=== PATIENT | female | born 1970 | race Caucasian/White ===

== ENCOUNTER 2018-10-18 23:56 | Emergency (ER) | payer SELFPAY ==
--- NOTE | 2018-10-19 00:01 | PDOC ---
History of Present Illness - General Stated Complaint: CHEST PAIN Time Seen by Provider: 10/18/18 23:58 - History of Present Illness Initial Comments: Hiro Sharma is a 48yo woman with no known medical problems (last saw a doctor 3yrs ago) who presents with right-sided chest, shoulder, and neck pain, sharp and non-radiating, 10/10, and constant that started yesterday. She states that she was talking with her brother when the pain suddenly started. It was initially in her shoulder and right neck, but has since progressed to include her entire right chest. She reports some limitation to taking deep breaths secondary to pain. She denies any associated left chest pain. The pain is sharp and constant; it is not associated with position, arm movement, exertion, eating, or any other activity. There are no associated symptoms including nausea, vomiting, dyspnea, or sweating. She has not traveled recently, has no history of thrombus, has not been immoblized, has not had surgery. She is not on OCPs and states she is post-menopausal. Ms Sharma has not tried taking any pain medications at home. She presented today because the pain was still 10/10 after more than a full day. Past History - Past Medical History Allergies/Adverse Reactions: Allergies Allergy/AdvReac Type Severity Reaction Status Date / Time No Known Allergies Allergy Verified 10/19/18 00:21 Home Medications: Ambulatory Orders NK [No Known Home Medication] 10/19/18 Review of Systems - Review of Systems Comments:: General: No fevers, no chills, no weight or appetite change, no malaise HEENT: No changes in vision, no changes in hearing, no congestion, no sore throat CV: See HPI. No palpitations, no LE edema Pulm: No SOB, no cough, no wheezing GI: No nausea or vomiting, no change in bowel habits, no melena : No frequency, no urgency, no dysuria Musc: No back pain, no joint swelling, no recent injury Skin: No rash, no lesions, no erythema Endo: No excessive thirst, no heat/cold intolerance Heme: No unusual bruising or bleeding, no swollen glands Neuro: No syncope, no numbness/tingling, no focal weakness Vasc: No claudication Psych: No recent change in mood, no SI or HI *Physical Exam - Physical Exam Comments: General: Comfortable, no acute distress HEENT: PERRL, EOMI, MMM, voice normal, normal neck ROM, no LAD Cards: RRR, no murmur appreciated Pulm: Comfortable on room air, clear to auscultation bilaterally Chest/back: Reproducible right chest wall, back, and shoulder pain with palpation Abd: Soft, nontender, nondistended : No CVA tenderness Ext: Atraumatic. No LE edema. ROM intact. Vasc: Extremities WWP Skin: Normal color, no rashes or lesions Neuro: A&Ox3, CN grossly intact, normal speech, motor/sensory grossly intact and symmetric Psych: Mood appropriate to situation ED Treatment Course - LABORATORY CBC & Chemistry Diagram: 10/19/18 00:33 10/19/18 00:33 - RADIOLOGY Radiology Studies Ordered: Category Date Time Status CHEST PA & LAT [RAD] Stat Radiology 10/18/18 23:59 Ordered Medical Decision Making - Medical Decision Making 10/19/18 00:00 Hiro Sharma is a 48yo woman with no known medical problems (last saw a doctor 3yrs ago) who presents with right-sided chest, shoulder, and neck pain, sharp and non-radiating, 10/10, and constant that started yesterday. She has some SOB secondary to pain. She has not tried taking any medication. - No cough, fever, or symptoms of infection suggesting pneumnonia. - No associated nausea/vomiting, sweating, dyspnea, or exertional component suggesting ACS. - No tachycardia or low sats. No recent travel, recent surgery, immobilization, calf pain, or other symtpoms suggesting PE - Given radiation to shoulder, could be pancreatitis or upper abd source, but no nausea/vomiting, no abdominal pain, no alcohol use, no association w/ eating - Most likely musculoskeletal but no h/o exertion, injury, or other cause of acute onset of pain - CBC, CMP, mag, phos, trop, EKG, chest xray - Acetaminophen 975mg for pain 10/19/18 00:50 - EKG completed. NSR, HR 72, normal axis. No ST changes. Normal EKG 10/19/18 01:12 - Labs reviewed. CK and alk phos mildly elevated, otherwise unremarkable. Trop negative. - Toradol for continued pain. - States she is post-menopausal. No need for test prior to CXR. - Needs CXR 10/19/18 01:55 - CXR completed. Reviewed in the ED with Dr Foote. No abnormalities noted - Pain is most likely musculoskeletal. Will refer for primary care follow up and d/c home at this time. Discussed with Dr Foote. Monique Jorge PGY1 *DC/Admit/Observation/Transfer Diagnosis at time of Disposition: Right-sided chest pain, Right-sided thoracic back pain - Discharge Dispostion Disposition: HOME Condition at time of disposition: Stable Decision to Admit order: No - Referrals - Patient Instructions Printed Discharge Instructions: DI for Chest Pain Additional Instructions: Discharge Instructions: You were seen in the emergency department for right-sided chest pain. You had blood tests, an EKG, and a chest xray. All of your test results were normal, and there was no problem found with your heart or your lungs. Your pain is most likely due to sore muscles and should improve over time. Home Care and Follow Up: - You may use over the counter medications as needed for pain at home. 650- 1000mg acetaminophen (Tylenol) or 600mg ibuprofen (Motrin or Advil) can be used every 6-8 hours. If needed for continued pain, these medications may be alternated every 3-4 hours. For example, you received ibuprofen at 9pm, so you may take acetaminophen at midnight, ibuprofen at 3am, acetaminophen at 6am. - You may buy lidocaine patches at any pharmacy that can be placed on the area of greatest pain. These may be used for 12 hours at a time and then removed for 12 hours. - Try using an ice pack for 20 minutes every hour or a heating pad for additional pain control. These should NOT be used over the lidocaine patch, but you may place them over the areas of pain while the patch is off. - Do not stop moving around. As much as you can tolerate, continue to do light exercise and stretching exercises. Increase your activity level as much as you can tolerate daily. - If your pain does not improve over the next week, you have been referred to the [facility] internal medicine clinic for follow up. Even if your pain improves , you should make an appointment to see them within the next 1-2 weeks for a general physical exam and to establish medical care. - Seek immediate medical care if you have significant worsening of your symptoms , have difficulty breathing, have chest pain with exercise, have associated nausea/vomiting or sweating, or you have any medical emergency. Instrucciones de descarga: Usted fue atendido en el departamento de emergencias por dolor en el pecho del lado derecho. Le hicieron anlisis de fady, un electrocardiograma y yesi radiografa de trax. Todos los resultados de jake pruebas fueron normales y no se encontraron problemas con duarte corazn o jake pulmones. Duarte dolor es ms probable debido a los msculos doloridos y debe mejorar con el tiempo. Atencin domiciliaria y seguimiento: - Puede usar medicamentos de venta mainor segn sea necesario para el dolor en el hogar. Se pueden usar 650-1000 mg de paracetamol (Tylenol) o 600 mg de ibuprofeno (Motrin o Advil) cada 6-8 horas. Si es necesario para el dolor continuo, estos medicamentos pueden alternarse cada 3-4 horas. Por ejemplo, recibi ibuprofeno a las 9 pm, por lo que puede hever acetaminofeno a la medianoche, ibuprofeno a las 3 am, acetaminofeno a las 6 am. - Puede comprar parches de lidocana en cualquier farmacia que pueda colocarse en el balwinder de mayor dolor. Se pueden usar antoni 12 horas seguidas y luego retirarse antoni 12 horas. - Intente usar yesi bolsa de hielo antoni 20 minutos cada hora o yesi almohadilla trmica para controlar el dolor adicional. NO se deben usar sobre el parche de lidocana, teresa puede colocarlos sobre las reas del dolor mientras el parche est apagado. - No dejes de moverte. Mientras pueda tolerar, contine haciendo ejercicios ligeros y ejercicios de estiramiento. Aumente duarte nivel de actividad tanto jimmy pueda tolerar diariamente. - Si duarte dolor no mejora antoni la prxima semana, lo deras remitido a la clnica de medicina interna de [facility] para duarte seguimiento. Incluso si duarte dolor mejora , debe hacer yesi hermelinda para verlos dentro de las prximas 1-2 semanas para un examen fsico general y para establecer atencin mdica. - Busque atencin mdica inmediata si tiene un empeoramiento significativo de jake sntomas, tiene dificultad para respirar, tiene dolor en el pecho con el ejercicio, tiene nuseas / vmitos o sudoracin asociados, o si tiene alguna emergencia mdica. Print Language: CROATIAN - Post Discharge Activity
[2018-10-19 00:42] LABS: BASO % 0.8 % (0-2.0); EOS % 6.1 % (0-4.5); HEMATOCRIT 37.5 % (32.4-45.2); HEMOGLOBIN 13.2 GM/dL (10.7-15.3); LYMPH % 34.6 % (8-40); MCH 29.9 pg (25.7-33.7); MCHC 35.1 g/dl (32.0-36.0); MEAN CELL VOLUME 85.3 fl (80-96); MEAN PLT VOLUME 9.1 fl (7.5-11.1); MONO % 6.5 % (3.8-10.2); PLATELET COUNT 225 K/MM3 (134-434); WHITE BLOOD COUNT 9.2 K/mm3 (4.0-10.0)
[2018-10-19 00:43] VITALS: BP 133/81; PULSE 76; TEMP 98.4; BMI 33.0
[2018-10-19] MEDS ORDERED: ACETAMINOPHEN 325 MG TABLET (FP) PO ONE (00:57)
[2018-10-19] MEDS ORDERED: ACETAMINOPHEN 325 MG TABLET (FP) ONE (01:01)
--- NOTE | 2018-10-19 01:02 | PDOC ---
Attending Attestation - HPI HPI: 10/19/18 01:09 48 year old female with no significant past medical history who presents to the ED with one day of right sided chest, shoulder, and neck pain that is sharp, constant and non-radiating. She also reports pain on inspiration but denies any associated shortness of breath, diaphoresis, focal neurological deficits, palpitations, or syncope. Denies any fevers or chills. - Physicial Exam PE: 10/19/18 01:10 GENERAL: Well developed, well nourished. Awake and alert. No acute distress. CARDIOVASCULAR: Regular rate and rhythm. No murmurs, rubs, or gallops. PULMONARY: No evidence of respiratory distress. Lungs clear to auscultation bilaterally. ABDOMINAL: Soft. Non-tender. Non-distended. No rebound or guarding. No organomegaly. Normoactive bowel sounds. MUSCULOSKELETAL Right trapezius tenderness. Normal range of motion at all joints. EXTREMITIES: No cyanosis. No clubbing. No edema. No calf tenderness. SKIN: Warm and dry. Normal capillary refill. No rashes. No jaundice. NEUROLOGICAL: Alert, awake, appropriate. Cranial nerves 2-12 intact.. - Medical Decision Making 10/19/18 01:10 Documentation prepared by Puja Telles, acting as infertility medical assistant for Juanita Foote MD. <Puja Telles - Last Filed: 10/19/18 01:09> - Resident Resident Name: Monique Jorge - ED Attending Attestation I have performed the following: I have examined & evaluated the patient, The case was reviewed & discussed with the resident, I agree w/resident's findings & plan, Exceptions are as noted - Medical Decision Making 10/19/18 01:21 pt is post menopausal EKG is nsr @ 72 bpm, normal QTc troponin is negative cbc unremarkable chemistry: wnl 10/19/18 02:05 cxr no pneumothorax,no infiltrates,normal mediastinum, no effusions imp atypical chest pain <Juanita Foote - Last Filed: 10/19/18 02:06>
[2018-10-19 01:07] LABS: ALBUMIN 3.6 g/dl (3.4-5.0); ALK PHOS 134 U/L (45-117); ANION GAP 6 MMOL/L (8-16); BILIRUBIN,TOTAL 0.5 mg/dL (0.2-1); BLOOD UREA NITROGEN 15 mg/dL (7-18); CALCIUM 8.5 mg/dL (8.5-10.1); CHLORIDE 103 mmol/L (98-107); CO2 29 mmol/L (21-32); CREATININE 0.7 mg/dL (0.55-1.3); GLUCOSE,RANDOM 101 mg/dL (74-106); LIPASE 229 U/L (73-393); MAGNESIUM 2.2 mg/dL (1.8-2.4); PHOSPHOROUS 3.7 mg/dL (2.5-4.9); POTASSIUM 3.9 mmol/L (3.5-5.1); SGOT/AST 33 U/L (15-37); SGPT/ALT 42 U/L (13-61); SODIUM 138 mmol/L (136-145)
[2018-10-19] MEDS ORDERED: KETOROLAC TROMETHAMINE 30 MG/1 ML VIAL IVPUSH ONE (01:21)
[2018-10-19] MEDS ORDERED: KETOROLAC TROMETHAMINE 30 MG/1 ML VIAL ONE (01:50)
--- NOTE | 2018-10-19 22:48 | EKG ---
Test Reason : Blood Pressure : / mmHG Vent. Rate : 072 BPM Atrial Rate : 072 BPM P-R Int : 158 ms QRS Dur : 086 ms QT Int : 408 ms P-R-T Axes : 052 065 056 degrees QTc Int : 446 ms NORMAL SINUS RHYTHM NORMAL ECG NO PREVIOUS ECGS AVAILABLE Confirmed by AMBREEN ELISE MD ([id number]) on 10/19/2018 10:48:34 PM Referred By: Confirmed By:AMBREEN ELISE MD
== END 2018-10-19 02:29 | disposition home or self-care (01) ==
LOC: JER 23:56
PROC: 3E0333Z Introduction of Anti-inflammatory into Peripheral Vein, Percutaneous Approach (ICD-10-PCS; principal; 2018-10-18)
DX: R07.9 Chest pain, unspecified (principal); M54.6 Pain in thoracic spine
CPT/HCPCS: 36415; 71046-TC-FY; 80053; 82550; 82553; 83690; 83735; 84100; 84484; 85025; 93005; 93010; 99283-25

== ENCOUNTER 2021-10-19 04:59 | Emergency (ER) | payer SELFPAY ==
[2021-10-19 05:27] VITALS: BP 116/76; PULSE 67; TEMP 98.4; BMI 39.2
[2021-10-19] MEDS ORDERED: FAMOTIDINE 20 MG/50 ML IVPB 20 MG/50 ML MG IVPB ONE ×2 (08:19→08:24)
[2021-10-19] MEDS ORDERED: SODIUM CHLORIDE 0.9% 500 ML INFUS.BAG IV ONE (08:19)
[2021-10-19] MEDS ORDERED: ONDANSETRON 4 MG/2 ML VIAL IVPUSH ONE (08:19)
[2021-10-19] MEDS ORDERED: ONDANSETRON 4 MG/2 ML VIAL ONE (08:24)
[2021-10-19 09:20] LABS: BASO % 0.4 % (0-2.0); EOS % 4.4 % (0-4.5); HEMATOCRIT 39.4 % (32.4-45.2); HEMOGLOBIN 13.1 GM/dL (10.7-15.3); LYMPH % 34.7 % (8-40); MCH 28.9 pg (25.7-33.7); MCHC 33.2 g/dl (32.0-36.0); MEAN CELL VOLUME 86.9 fl (80-96); MEAN PLT VOLUME 8.8 fl (7.5-11.1); MONO % 10.3 % (3.8-10.2); NEUT % 50.2 % (42.8-82.8); PLATELET COUNT 204 10^3/uL (134-434); RBC 4.53 M/mm3 (3.60-5.2); RDW 13.8 % (11.6-15.6); WHITE BLOOD COUNT 5.6 K/mm3 (4.0-10.0)
[2021-10-19 09:41] LABS: ALBUMIN 3.6 g/dl (3.4-5.0); BLOOD UREA NITROGEN 14.7 mg/dL (7-18); CALCIUM 8.5 mg/dL (8.5-10.1)
[2021-10-19 09:44] LABS: CREATININE 0.5 mg/dL (0.55-1.3)
[2021-10-19 09:46] LABS: BILIRUBIN,TOTAL 0.5 mg/dL (0.2-1); TOT PROT 7.6 g/dl (6.4-8.2)
[2021-10-19 10:46] LABS: EPI CELLS >36 /uL (0-25.1); HYALINE CASTS 3 /uL (0-3.1); PH,URINE 5.5 (5.0-8.0); URINE APPEARANCE CLOUDY; URINE BACTERIA 45 /uL (0-1359); URINE BILIRUBIN NEGATIVE (NEGATIVE); URINE COLOR YELLOW; URINE GLUCOSE (UA) NEGATIVE (NEGATIVE); URINE KETONE NEGATIVE (NEGATIVE); URINE LEUK ESTERASE 1+ (NEGATIVE); URINE NITRITE NEGATIVE (NEGATIVE); URINE PROTEIN NEGATIVE (NEGATIVE); URINE UROBILINOGEN 0.2 mg/dL (0.2-1.0); URINE WBC 105 /uL (0-25.8)
[2021-10-19 11:29] LABS: URINE CRYSTALS CALCIUM OXALATE /hpf; URINE RBC 22.1 /uL (0-23.9)
== END 2021-10-19 12:16 | disposition home or self-care (01) ==
LOC: JER 04:59
PROC: 3E033GC Introduction of Other Therapeutic Substance into Peripheral Vein, Percutaneous Approach (ICD-10-PCS; principal; 2021-10-19)
PROC: 3E033GC Introduction of Other Therapeutic Substance into Peripheral Vein, Percutaneous Approach (ICD-10-PCS; 2021-10-19)
DX: R10.13 Epigastric pain (principal)
CPT/HCPCS: 36415; 80053; 81003; 83690; 84484; 85025; 87086; 93005; 93010; 99284-25

== ENCOUNTER 2025-05-03 07:53 | Emergency (ER) | payer OTHER ==
[2025-05-03 08:02] VITALS: BP 161/77; PULSE 56; RESP 20; TEMP 98.1; BMI 36.7
[2025-05-03] MEDS ORDERED: IBUPROFEN 400 MG TABLET (FP) PO ONE (08:31)
[2025-05-03] MEDS: IBUPROFEN 400 MG TABLET (FP) PO ONE (08:33)
[2025-05-03] MEDS ORDERED: ACETAMINOPHEN 500 MG TABLET (FP) ONE (08:52)
[2025-05-03] MEDS: ACETAMINOPHEN 325 MG TABLET (FP) PO ONE (08:54)
== END 2025-05-03 11:31 | disposition home or self-care (01) ==
LOC: JERFT 07:53
DX: M25.551 Pain in right hip (principal)
CPT/HCPCS: 73502-TC-RT-FY; 99283-25